=== PATIENT | female | born 1960 | race Caucasian/White ===

== ENCOUNTER → 2017-06-29 | Outpatient (CLI) | payer MEDICAID ==
[2016-09-08 13:13] VITALS: BP 113/70
--- NOTE | 2017-06-29 12:50 | RAD ---
Examination: Abdomen series with PA chest History: Lower abdominal pain Comparison reference: Abdomen CT, 05/22/2016 Findings: PA chest: Normal heart size with clear lungs and pleural spaces. Abdomen: Supine and erect views demonstrate no evidence for significant intestinal distention, obstru ction or localized ileus. There is no evidence for ascites, mass or urinary calcification. Visceral o utlines are normal. Impression: No significant chest or abdominal abnormality demonstrated. Reported By:
--- NOTE | 2017-06-29 12:53 | RAD ---
Examination: AP pelvis, one view History: Lower abdominal pain and bloating, history of hysterectomy Findings: AP view of the pelvis demonstrates normal bone density. There is no evidence for osseous le ronald, pole mass, or free fluid. Small calcifications in the pelvis are typical for vascular origin. T here is slight distention of the urinary bladder. Impression: No significant abnormality demonstrated. Reported By:
== END ==
LOC: RAD 12:01
PROVIDERS: ATTEND Nurse Practitioner Family
DX: R10.31 Right lower quadrant pain (principal); R10.32 Left lower quadrant pain
CPT/HCPCS: 72170; 74022

== ENCOUNTER 2017-08-01 11:08 | Inpatient (IN) | payer MEDICAID ==
[2017-08-01 13:24] LABS: APPEARANCE,URINE CLEAR (CLEAR); COLOR,URINE YELLOW (YELLOW); PROTEIN,URINE NEGATIVE (NEGATIVE)
[2017-08-01 13:25] LABS: BACTERIA,URINE TRACE /HPF (NEGATIVE); BILIRUBIN,URINE NEGATIVE (NEGATIVE); BLOOD/HEMOGLOBIN,URINE NEGATIVE (NEGATIVE); GLUCOSE, URINE NEGATIVE (NEGATIVE); KETONES,URINE NEGATIVE (NEGATIVE); LEUKOCYTE ESTERASE ,URINE NEGATIVE (NEGATIVE); NITRITES,URINE NEGATIVE (NEGATIVE); SQUAMOUS EPITHELIAL CELL,UR RARE /HPF (NEGATIVE); UROBILINOGEN,URINE NORMAL (NORMAL)
[2017-08-01] MEDS ORDERED: PERCOCET TAB 5/325 MG PO PRN (13:30)
--- NOTE | 2017-08-01 13:34 | DR.H&P ---
H&P - History & Physical for Day of: H&P Date: 08/01/17 - Chief Complaint Chief Complaint: RUQ PAIN, RIGHT RIB PAIN, NAUSEA - Allergies Allergies/Adverse Reactions: Allergies Allergy/AdvReac Type Severity Reaction Status Date / Time Penicillins Allergy Verified 08/01/17 11:42 - History of Present Illness History of Present Illness: patient is a 56-year-old white female who was a direct admit from Dr. Goncalves's office with complaints of right upper abdominal pain and right rib pain patient states she feels short of breath like she can't keep a deep breath without increased pain to her right side patient was previously same for similar complaints had a CT scan of the abdomen and pelvis without any acute findings patient was treated for UTI also on that visit with Cipro patient continues to have complaints of pain patient's pain she 's having nausea and vomiting associated with pain and it's unbearable. Patient states she still has her gallbladder. Plan to admit patient for further evaluation of abdominal pain pain and nausea control obtained gallbladder studies. - Past Medical History Past Medical History: Anxiety, Arthritis, Depression Additional Medical History: NEUROMOTOR DYSFUNCTION, UNCONTROLLED MUSCLE MOVEMENTS - Past Surgical History Surgical History: Appendectomy, - Family History Family Medical History: Diabetes Mellitus, Cancer, Coronary Artery Disease, Hypertension - Social History Does patient currently use any type of tobacco product: Yes Have you used tobacco products in the last 12 months: No Type of Tobacco Use: Cigarettes Alcohol Use: Occasionally Drug Use: None - Medications Home Medications: Carbidopa-Levodopa 25/250 mg [SINEMET (Plain) 25/250 mg tab *] 1 tab PO BID 12/13 [History Confirmed 08/01/17] Gabapentin [NEURONTIN CAP 300 mg *] 1 tab PO TID 08/01/17 [History Confirmed 12/13] Hydrocodone/Acetaminophen [Hydrocodon-Acetaminoph 7.5-325] 1 tab PO DAILY PRN [History Confirmed 08/01/17] Meloxicam [Meloxicam] 1 tab PO DAILY 08/01/17 [History Confirmed 08/01/17] - Review of Systems Constitutional: Weakness, Malaise Eyes: No Symptoms Reported ENT: No Symptoms Reported Cardiovascular: Chest Pain (right rib pain) Gastrointestinal: Nausea, Vomiting, Abdominal Pain Genitourinary: No Symptoms Reported Musculoskeletal: Back Pain, Leg Pain Skin: No Symptoms Reported Neurological: Other ( home along) - Physical Exam Vital Signs: Temperature 96.9 F Pulse Rate [Left Brachial] 98 Respiratory Rate 18 Blood Pressure [Right Arm] 113/70 Blood Pressure [Left Arm] 138/87 Blood Pressure 113/70 O2 Sat by Pulse Oximetry 100 Oriented: Person Eyes: Normal Ear: Normal Nose: Normal Throat: Normal Respiratory: RLL Diminished Cardiovascular: Normal : Normal Auscultation: Bowel Sounds: Normal (he was) Palpation: Normal Tenderness: RUQ, Epigastric Skin: Decreased Turgur Musculoskeletal: Left, Hip, Back:Lumbar Psychiatric: Anxiety Affect: Anxious Speech Pattern: Clear, Appropriate - Assessment/Plan (1) RUQ abdominal pain Status: Acute Plan: PLAN TO ADMIT FOR ASSESSMENT OF ABDOMINAL PAIN, PAIN AND NAUSEA CONTROL, IV PEPCID, IV CIPRO. UC, CMP, CBC. GB US, HIDA SCAN (2) Involuntary muscle contractions Status: Acute (3) Anxiety Status: Chronic (4) GERD (gastroesophageal reflux disease) Status: Chronic
[2017-08-01] MEDS: COLACE CAP 100 MG PO SCH ×2 (13:58→20:21)
[2017-08-01] MEDS ORDERED: COLACE CAP 100 MG PO SCH (14:00)
[2017-08-01] MEDS ORDERED: NS 1/2 1000 ML IV 1,000 ML IV ONE (14:07)
[2017-08-01] MEDS: CIPRO IV 400 MG PREMIX* 400 MG/200 ML IV.SOLN. IV SCH ×2 (14:15→20:21)
[2017-08-01] MEDS: PERCOCET TAB 5/325 MG PO PRN ×2 (14:16→20:22)
[2017-08-01] MEDS: NS 1/2 1000 ML IV 1,000 ML IV SCH (14:16)
[2017-08-01 14:18] LABS: BASOPHILS # (AUTO) 0.2 X10^3/uL (0.0-0.1); BASOPHILS % (AUTO) 1.6 % (0.2-1.0); EOSINOPHILS # (AUTO) 0.1 x10^3/uL (0.0-0.2); EOSINOPHILS % (AUTO) 0.9 % (0.9-2.9); HEMATOCRIT 40.7 % (36.0-47.0); HEMOGLOBIN 14.3 g/dL (12.0-16.0); LYMPHOCYTES # (AUTO) 1.6 X10^3/uL (1.3-2.9); LYMPHOCYTES % (AUTO) 16.6 % (21.0-51.0); MEAN CORPUSCULAR HGB CONC 35.1 g/dL (33.0-35.0); MEAN CORPUSCULAR VOLUME 85.3 fL (80.0-100.0); MEAN PLATELET VOLUME 7.1 fL (7.4-11.0); MONOCYTES # (AUTO) 0.3 x10^3/uL (0.3-0.8); MONOCYTES % (AUTO) 3.3 % (0.0-13.0); NEUTROPHILS # (AUTO) 7.4 x10^3/uL (2.2-4.8); NEUTROPHILS % (AUTO) 77.6 % (42.0-75.0); PLATELET COUNT 268 X10^3/uL (150.0-450.0); RED BLOOD COUNT 4.77 X10^6/uL (3.5-5.4); RED CELL DISTRIBUTION WIDTH 12.7 % (11.6-16.5); WHITE BLOOD COUNT 9.5 X10^3/uL (3.6-10.0)
[2017-08-01 14:32] LABS: ALANINE AMINOTRANSFERASE 114 Units/L (12-78); ALBUMIN 3.8 g/dL (3.4-5.0); ALKALINE PHOSPHATASE 185 Units/L (46-116); AMYLASE 31 Units/L (25-115); ASPARTATE AMINO TRANSFERASE 69 Units/L (15-37); BLOOD UREA NITROGEN 9 mg/dL (7-18); CALCIUM 9.4 mg/dL (8.5-10.1); CARBON DIOXIDE 32.1 mmol/L (21-32); CHLORIDE 103 mmol/L (98-107); CREATININE 0.75 mg/dL (0.55-1.02); LIPASE 93 Units/L (73-393); SODIUM 138 mmol/L (136-145); TOTAL PROTEIN 7.5 g/dL (6.4-8.2); eGFR BLACK RACES > 60 (>60); eGFR NON BLACK RACES > 60 (>60)
--- NOTE | 2017-08-01 14:35 | RAD ---
Examination: Portable AP chest History: SOB right pain Comparison reference 09/08/2016 Findings: Continued normal heart size with clear lungs and pleural spaces. Impression: No change; no acute disease. Reported By:
[2017-08-01] MEDS: PEPCID 20 MG IV PREMIX* 20 MG/50 ML BAG IV SCH (20:21)
--- NOTE | 2017-08-01 22:51 | US ---
Gallbladder ultrasound Indication: Right upper quadrant pain, nausea and vomiting Comparison: None Technique: Sonographic images of the right upper quadrant were obtained per protocol. Findings: There is no cholelithiasis, gallbladder sludge, gallbladder distention, wall thickening, or pericholecystic fluid. No biliary dilation is observed; the common duct measured 4 mm in diameter. T he visualized liver, right kidney, and pancreas were unremarkable. Impression: Normal gallbladder ultrasound. Reported By:
[2017-08-02] MEDS: ZOFRAN INJ 4 MG VIAL 16 MG, ATIVAN INJ 2 MG VIAL 1 MG, DECADRON INJ 10 MG in NS 50 ML I... IV PRN ×2 (01:00→11:18)
[2017-08-02] MEDS: PERCOCET TAB 5/325 MG PO PRN ×3 (02:38→14:14)
[2017-08-02] MEDS ORDERED: NS 1/2 1000 ML IV 1,000 ML IV ONE ×2 (04:14→21:35)
[2017-08-02] MEDS: NS 1/2 1000 ML IV 1,000 ML IV SCH ×2 (05:54→15:34)
[2017-08-02 06:02] LABS: BASOPHILS % (AUTO) 0.3 % (0.2-1.0); EOSINOPHILS % (AUTO) 0.4 % (0.9-2.9); HEMATOCRIT 39.9 % (36.0-47.0); HEMOGLOBIN 14.1 g/dL (12.0-16.0); LYMPHOCYTES % (AUTO) 10.3 % (21.0-51.0); MEAN CORPUSCULAR HGB CONC 35.3 g/dL (33.0-35.0); MEAN PLATELET VOLUME 7.6 fL (7.4-11.0); MONOCYTES # (AUTO) 0.1 x10^3/uL (0.3-0.8); MONOCYTES % (AUTO) 1.5 % (0.0-13.0); NEUTROPHILS # (AUTO) 8.4 x10^3/uL (2.2-4.8); NEUTROPHILS % (AUTO) 87.5 % (42.0-75.0); PLATELET COUNT 271 X10^3/uL (150.0-450.0); RED BLOOD COUNT 4.69 X10^6/uL (3.5-5.4); RED CELL DISTRIBUTION WIDTH 13.1 % (11.6-16.5); WHITE BLOOD COUNT 9.6 X10^3/uL (3.6-10.0)
[2017-08-02 06:10] LABS: ALANINE AMINOTRANSFERASE 99 Units/L (12-78); ALBUMIN 3.7 g/dL (3.4-5.0); ALKALINE PHOSPHATASE 180 Units/L (46-116); ASPARTATE AMINO TRANSFERASE 48 Units/L (15-37); BLOOD UREA NITROGEN 10 mg/dL (7-18); CALCIUM 9.1 mg/dL (8.5-10.1); CARBON DIOXIDE 25.1 mmol/L (21-32); CHLORIDE 104 mmol/L (98-107); COR NA(FOR HYPERGLY) 140 mmol/L (136-145); CREATININE 0.75 mg/dL (0.55-1.02); SODIUM 139 mmol/L (136-145); TOTAL PROTEIN 7.5 g/dL (6.4-8.2); eGFR BLACK RACES > 60 (>60); eGFR NON BLACK RACES > 60 (>60)
[2017-08-02 07:25] VITALS: BMI 23.8
[2017-08-02] MEDS: PEPCID 20 MG IV PREMIX* 20 MG/50 ML BAG IV SCH ×2 (08:33→21:21)
[2017-08-02] MEDS: CIPRO IV 400 MG PREMIX* 400 MG/200 ML IV.SOLN. IV SCH ×2 (08:33→21:21)
--- NOTE | 2017-08-02 13:21 | NM ---
HISTORY: RUQ pain, nausea. Technique: Multiple scintigraphic images of the abdomen were obtained the intravenous administration of 8.1 mCi of technetium labeled Choletec. Following distention of the gallbladder with radiotracer a bottle of Ensure was given. An estimated gallbladder ejection fraction was calculated based on this physiologic response. Findings: Homogeneous uptake of radiotracer is seen throughout the liver. The intrabiliary ductal system is ob served normally. The common hepatic and common bile duct grossly appear unremarkable with normal jeff iary-bowel transit. The gallbladder is observed to fill normally without evidence for acute cholecys titis. After the administration of ensure, however, an abnormally low gallbladder ejection fraction o f 2% (normal > 35%) is observed. Although many etiologies (certain medications, cholangitis, pancreat itis, sepsis, etc.) can account for a low gallbladder ejection fraction, in the outpatient setting, t he most common etiology is chronic cholecystitis. IMPRESSION: 1. Hepatobiliary imaging study demonstrates no evidence for acute cholecystitis or biliary leak/bilo ma formation. However, there is some delayed excretion of radiotracer contrast into the small bowel w hich can be seen with biliary dyskinesia/CBD dysfunction, possible CBD stricture formation, or CBD st one disease. RUQ ultrasound suggested. 2. Low gallbladder ejection fraction of 2%, as discussed above. Reported By:
--- NOTE | 2017-08-02 14:19 | DR.CONSULT ---
Consult - Consultation for Day of: Date: 08/02/17 - Chief Complaint Chief Complaint: RUQ pain. - Allergies Allergies/Adverse Reactions: Allergies Allergy/AdvReac Type Severity Reaction Status Date / Time Penicillins Allergy Verified 08/01/17 11:42 - History of Present Illness History of Present Illness: The patient is a 56 year old female who presented to her PCP with persistent RUQ pain , nausea, and vomiting. The patient states the pain is worse with respirations. No alleviating factors. She was recently treated for UTI for some of these symptoms without relief. The patient was admitted to the hospital and work-up started. An ultrasound failed to show any abnormalities. A subsequent HIDA demonstrated an ejection fraction of 2%. Currently, a MRCP is pending. - Past Medical History Past Medical History: Anxiety, Arthritis, Depression Additional Medical History: NEUROMOTOR DYSFUNCTION, UNCONTROLLED MUSCLE MOVEMENTS - Past Surgical History Surgical History: Appendectomy, - Family History Family Medical History: Diabetes Mellitus, Cancer, Coronary Artery Disease, Hypertension - Social History Does patient currently use any type of tobacco product: Yes Have you used tobacco products in the last 12 months: No Type of Tobacco Use: Cigarettes Alcohol Use: Occasionally Drug Use: None - Medications Home Medications: Carbidopa-Levodopa 25/250 mg [SINEMET (Plain) 25/250 mg tab *] 1 tab PO BID 12/13 [History Confirmed 08/01/17] Gabapentin [NEURONTIN CAP 300 mg *] 1 tab PO TID 08/01/17 [History Confirmed 12/13] Hydrocodone/Acetaminophen [Hydrocodon-Acetaminoph 7.5-325] 1 tab PO DAILY PRN [History Confirmed 08/01/17] Meloxicam [Meloxicam] 1 tab PO DAILY 08/01/17 [History Confirmed 08/01/17] - Review of Systems Constitutional: Weakness, Malaise Eyes: No Symptoms Reported ENT: No Symptoms Reported Respiratory: No Symptoms Reported Cardiovascular: No Symptoms Reported Gastrointestinal: Abdominal Pain Musculoskeletal: Back Pain, Leg Pain Skin: No Symptoms Reported Neurological: No Symptoms Reported - Physical Exam Vital Signs: Temperature 97.6 F Pulse Rate [Right Brachial] 89 Pulse Rate [Left Brachial] 60 Respiratory Rate 18 Blood Pressure [Right Arm] 117/63 Blood Pressure [Left Arm] 129/78 Blood Pressure 113/70 O2 Sat by Pulse Oximetry 91 Oriented: Normal Eyes: Normal Ear: Normal Nose: Normal Respiratory: Clear Throughout Cardiovascular: Normal Auscultation: Bowel Sounds: Normal Palpation: Normal Tenderness: RUQ Skin: Normal Musculoskeletal: Normal Affect: Anxious Speech Pattern: Clear (Stuttering noted.) - Plan Plan: 56 year old female with ruq pain, nausea, and vomiting: Likely represents chronic cholecystitis. Agree with MRCP to rule out other etiologies at Sphincter of Oddi. If MRCP normal, will likely proceed with lap ina in am. Risk / benefits discussed with patient. All questions answered.
[2017-08-02] MEDS: MORPHINE SULFATE INJ 2 MG INJ IVP PRN ×2 (14:32→21:24)
[2017-08-02] MEDS: SINEMET (PLAIN) 25/250 MG PO SCH ×2 (17:57→21:21)
[2017-08-02] MEDS ORDERED: FLEXERIL TAB 10 MG PO PRN (18:00)
[2017-08-02] MEDS ORDERED: MOTRIN TAB 600 MG PO PRN (18:00)
--- NOTE | 2017-08-02 18:11 | MRI ---
MRI abdomen without contrast MRCP abdomen without contrast Indication: Constipation and abdominal pain. Abnormal HIDA scan. Comparison: HIDA scan from earlier today reviewed. Gallbladder ultrasound from the previous day tue. CT from 05/22/2016 reviewed. Technique: Multiplanar multi sequence imaging through the abdomen performed without contrast. 3D MRCP imaging provided. Findings: Bone marrow signal is normal. Wedge compression deformity T11 appears chronic. Loops bowel appear grossly normal. Vascular flow voids appear normal. No liver lesion identified. The stomach meredith ears normal. The kidneys appear normal. The spleen is normal. No adrenal lesions identified. Urinary bladder and rectum are normal. Out of phase imaging shows no fatty infiltration of the liver. The gal lbladder is not thick-walled. No filling defects seen in the gallbladder. The common bile duct is not dilated. Pancreas duct appears normal. The pancreas is normal. The coronal image 3 of series 901 petey ws abnormal biliary tree, pancreas duct and gallbladder. Impression: 1. Non dilated common bowel duct without specific evidence of obstruction, stricture or stone. 2. Normal appearing gallbladder. 3. Remaining solid organs appear normal. Reported By:
[2017-08-02] MEDS ORDERED: POTASSIUM CHL 40 MEQ/NS 0.45% 500 ML IV PRN (18:22)
[2017-08-02] MEDS ORDERED: K-RIDER 10 MEQ/NS 100 ML 10 MEQ/100 ML BAG IV PRN (18:22)
[2017-08-02] MEDS ORDERED: POTASSIUM CHL 60 MEQ/NS 0.45% 500 ML IV PRN (18:22)
[2017-08-02] MEDS ORDERED: POTASSIUM CHLORIDE LIQ 20 MEQ UDC PO PRN (18:22)
[2017-08-02] MEDS: K-LYTE EFFERVESCENT PO PRN (18:35)
[2017-08-02] MEDS: NEURONTIN CAP 300 MG PO SCH (21:21)
[2017-08-02] MEDS: COLACE CAP 100 MG PO SCH (21:22)
[2017-08-03] MEDS: MORPHINE SULFATE INJ 2 MG INJ IVP PRN ×4 (02:10→23:26)
[2017-08-03 05:33] LABS: ALANINE AMINOTRANSFERASE 52 Units/L (12-78); ALBUMIN 3.5 g/dL (3.4-5.0); ALKALINE PHOSPHATASE 159 Units/L (46-116); ASPARTATE AMINO TRANSFERASE 25 Units/L (15-37); BLOOD UREA NITROGEN 12 mg/dL (7-18); CARBON DIOXIDE 25.5 mmol/L (21-32); CHLORIDE 104 mmol/L (98-107); COR NA(FOR HYPERGLY) 141 mmol/L (136-145); CREATININE 0.81 mg/dL (0.55-1.02); SODIUM 140 mmol/L (136-145); TOTAL PROTEIN 7.2 g/dL (6.4-8.2); eGFR BLACK RACES > 60 (>60); eGFR NON BLACK RACES > 60 (>60)
[2017-08-03 05:40] LABS: BASOPHILS % (AUTO) 0.1 % (0.2-1.0); HEMATOCRIT 38.5 % (36.0-47.0); HEMOGLOBIN 13.3 g/dL (12.0-16.0); LYMPHOCYTES # (AUTO) 1.2 X10^3/uL (1.3-2.9); LYMPHOCYTES % (AUTO) 8.7 % (21.0-51.0); MEAN CORPUSCULAR HEMOGLOBIN 29.9 pg (27.0-34.0); MEAN CORPUSCULAR HGB CONC 34.6 g/dL (33.0-35.0); MEAN CORPUSCULAR VOLUME 86.3 fL (80.0-100.0); MEAN PLATELET VOLUME 7.7 fL (7.4-11.0); MONOCYTES # (AUTO) 0.5 x10^3/uL (0.3-0.8); MONOCYTES % (AUTO) 3.8 % (0.0-13.0); NEUTROPHILS # (AUTO) 11.7 x10^3/uL (2.2-4.8); NEUTROPHILS % (AUTO) 87.4 % (42.0-75.0); PLATELET COUNT 292 X10^3/uL (150.0-450.0); RED BLOOD COUNT 4.46 X10^6/uL (3.5-5.4); WHITE BLOOD COUNT 13.4 X10^3/uL (3.6-10.0)
[2017-08-03] MEDS: SINEMET (PLAIN) 25/250 MG PO SCH ×3 (05:50→21:17)
[2017-08-03] MEDS: NEURONTIN CAP 300 MG PO SCH ×3 (05:50→21:16)
[2017-08-03] MEDS: PEPCID 20 MG IV PREMIX* 20 MG/50 ML BAG IV SCH ×2 (08:15→20:22)
[2017-08-03] MEDS: CIPRO IV 400 MG PREMIX* 400 MG/200 ML IV.SOLN. IV SCH ×2 (08:15→20:22)
[2017-08-03] MEDS: PriLOSEC PO SCH (08:24)
[2017-08-03] MEDS: MOBIC TAB 15 MG PO SCH (08:24)
[2017-08-03] MEDS ORDERED: ANCEF VIAL 1 GM ONE (09:55)
[2017-08-03] MEDS: LR 1000 ML IV 1,000 ML IV ONE ×2 (10:20→11:40)
[2017-08-03] MEDS ORDERED: FENTANYL INJ 100 mcg ONE (10:36)
[2017-08-03] MEDS ORDERED: DILAUDID INJ ONE ×2 (10:37→13:15)
[2017-08-03] MEDS ORDERED: NS 100 ML IV 100 ML IV ONE (10:38)
[2017-08-03] MEDS: CLEOCIN VIAL 600 MG ONE ×2 (10:50→11:30)
[2017-08-03] MEDS ORDERED: MARCAINE 0.25% INJ ONE (11:45)
[2017-08-03] MEDS ORDERED: XYLOCAINE 1% and EPINEPHRINE 1:100,000 ONE (11:45)
[2017-08-03] MEDS ORDERED: REGLAN INJ 10 MG VIAL IVP PRN (12:55)
[2017-08-03] MEDS ORDERED: BENADRYL INJ 50 MG VIAL IVP PRN (12:55)
[2017-08-03] MEDS ORDERED: DILAUDID INJ IVP PRN (12:55)
[2017-08-03] MEDS ORDERED: ZOFRAN INJ 4 MG VIAL IVP PRN (12:55)
[2017-08-03] MEDS ORDERED: PHENERGAN INJ 25 MG IVP PRN (12:55)
--- NOTE | 2017-08-03 13:03 | OR.GENERIC ---
Post-Op Note Generic - Post-Op Note Operative Report: Operative Report Date of Operation: August 03, 2017 Pre-Operative Diagnosis: Biliary dyskinesia. Post-Operative Diagnosis: Biliary dyskinesia. Procedure: Laparoscopic cholecystectomy. Surgeon: George Brewer MD. Credit Authorizer: Moni Pearson CRNA. Specimen: Gallbladder. Estimated blood loss: Minimal. Complications: None. Summary: The patient is a 56 year old female who presented with biliary dyskinesia. The patient was offered cholecystectomy. The risk and benefits of the procedure including difficulty with anesthesia, bleeding, infection, conversion to open procedure, bile leak, hernia formation, DVT, as well as PE were discussed with the patient. The patient understood these risks and requested the procedure. On August 03, 2017, the patient was brought to the operative theatre. A time out was performed verifying the patient and procedure. After satisfactory induction of general endotracheal anesthesia, the abdomen was prepped with Chloraprep and draped in the usual sterile fashion. The skin and subcutaneous tissue at the umbilicus was anesthetized using local anesthetic. The skin was incised sharply. A 12 mm trocar was placed though the incision and into the peritoneal cavity using the Lashanda technique. Carbon dioxide was infiltrated through this trocar to obtain a pneumoperitoneum of 15 mm Hg. A camera was placed through this trocar and swept in all directions. No injury was seen from entering the peritoneal cavity. A site was selected in the subxiphoid location for our 2nd trocar. The skin and fascia was anesthetized using local anesthetic. The skin was incised sharply. A 5 mm trocar was placed into the peritoneal cavity under direct visualization. In a similar manner, an additional 5 mm trocar was placed in the mid-clavicular line approximately 2 fingerbreadths inferior to the left costal margin. The patient was placed in reverse Trendelenburg and rotated to the patients left. The gallbladder was grasped at the fundus and elevated cephalad and slightly lateral. The peritoneum on the medial and lateral aspects of the infundibulum of the gallbladder was scored using hook electrocautery. Using blunt dissection, the cystic artery and duct were isolated. The cystic artery was noted to branch just proximal to the gallbladder. The critical view of safety was obtained. These structures were divided between endoclips. The gallbladder was dissected free using hook electrocautery. The gallbladder was placed in an endobag and removed through the umbilical trocar site without difficulty. The trocar and camera were placed back inside the abdomen. Our clips were noted in good position. Bleeding of the gallbladder fossa was controlled using electrocautery. At this point, the 5 mm trocars were removed under direct visualization. No bleeding was seen. The umbilical trocar was then removed and pneumoperitoneum released. The fascia at the umbilicus was closed using a 0 -Vicryl placed in a [id number] configuration. The skin edges at all incisions were re-approximated using inverted, interrupted 4-0 Monocryl sutures. Mastisol and Steri-strips were placed. Sterile dressings were placed. The patient was awakened and taken to the recovery room in stable condition. There were no complications. All counts were correct.
[2017-08-03] MEDS ORDERED: NS 1/2 1000 ML IV 1,000 ML IV ONE (17:21)
[2017-08-03] MEDS: NS 1/2 1000 ML IV 1,000 ML IV SCH (18:21)
[2017-08-03] MEDS: PERCOCET TAB 5/325 MG PO PRN (20:23)
[2017-08-03] MEDS: COLACE CAP 100 MG PO SCH (20:24)
--- NOTE | 2017-08-03 22:09 | CT ---
CT head without contrast Indication: Slurred speech Comparison: None Technique: CT images of the head were obtained without contrast. Automatic exposure control was utili Tjobs S.A.d. Findings: There is no acute bleed, mass, mass effect, or abnormal extra-axial collection. The ventric les are not dilated. No significant skeletal abnormality. The visualized paranasal sinuses and mastoi d air cells are clear. Impression: No acute intracranial abnormality. Reported By:
[2017-08-04 05:09] LABS: BASOPHILS % (AUTO) 0.2 % (0.2-1.0); EOSINOPHILS # (AUTO) 0.1 x10^3/uL (0.0-0.2); EOSINOPHILS % (AUTO) 0.6 % (0.9-2.9); HEMATOCRIT 36.5 % (36.0-47.0); HEMOGLOBIN 12.6 g/dL (12.0-16.0); LYMPHOCYTES # (AUTO) 2.6 X10^3/uL (1.3-2.9); LYMPHOCYTES % (AUTO) 27.9 % (21.0-51.0); MEAN CORPUSCULAR HGB CONC 34.6 g/dL (33.0-35.0); MEAN CORPUSCULAR VOLUME 86.8 fL (80.0-100.0); MEAN PLATELET VOLUME 7.5 fL (7.4-11.0); MONOCYTES # (AUTO) 0.6 x10^3/uL (0.3-0.8); MONOCYTES % (AUTO) 6.2 % (0.0-13.0); NEUTROPHILS % (AUTO) 65.1 % (42.0-75.0); PLATELET COUNT 265 X10^3/uL (150.0-450.0); RED CELL DISTRIBUTION WIDTH 12.9 % (11.6-16.5); WHITE BLOOD COUNT 9.3 X10^3/uL (3.6-10.0)
[2017-08-04] MEDS: SINEMET (PLAIN) 25/250 MG PO SCH (05:15)
[2017-08-04] MEDS: PERCOCET TAB 5/325 MG PO PRN (05:15)
[2017-08-04] MEDS: NEURONTIN CAP 300 MG PO SCH (05:15)
[2017-08-04 05:37] LABS: ALANINE AMINOTRANSFERASE 42 Units/L (12-78); ALBUMIN 3.4 g/dL (3.4-5.0); ALKALINE PHOSPHATASE 142 Units/L (46-116); ASPARTATE AMINO TRANSFERASE 28 Units/L (15-37); BLOOD UREA NITROGEN 12 mg/dL (7-18); CALCIUM 8.4 mg/dL (8.5-10.1); CARBON DIOXIDE 30.2 mmol/L (21-32); CHLORIDE 104 mmol/L (98-107); CREATININE 0.81 mg/dL (0.55-1.02); SODIUM 141 mmol/L (136-145); TOTAL PROTEIN 6.7 g/dL (6.4-8.2); eGFR BLACK RACES > 60 (>60); eGFR NON BLACK RACES > 60 (>60)
[2017-08-04] MEDS: NS 1/2 1000 ML IV 1,000 ML IV SCH ×2 (05:58→10:50)
[2017-08-04] MEDS: K-LYTE EFFERVESCENT PO PRN (06:14)
[2017-08-04] MEDS ORDERED: NS 1/2 1000 ML IV 1,000 ML IV ONE (06:22)
[2017-08-04] MEDS: MOBIC TAB 15 MG PO SCH (09:10)
[2017-08-04] MEDS: PriLOSEC PO SCH (09:10)
[2017-08-04] MEDS: CIPRO IV 400 MG PREMIX* 400 MG/200 ML IV.SOLN. IV SCH ×2 (09:11→10:48)
[2017-08-04] MEDS: PEPCID 20 MG IV PREMIX* 20 MG/50 ML BAG IV SCH (09:12)
[2017-08-04] MEDS ORDERED: DIPRIVAN VIAL ONE (09:42)
[2017-08-04] MEDS ORDERED: ULTANE GAS IN ONE (09:53)
[2017-08-04] MEDS ORDERED: TORADOL 30 MG VIAL ONE (09:53)
[2017-08-04] MEDS ORDERED: QUELICIN (OR ANECTINE) ONE (09:53)
[2017-08-04] MEDS ORDERED: ZOFRAN INJ 4 MG VIAL ONE (09:53)
[2017-08-04] MEDS ORDERED: NORCURON INJ 10 MG VIAL ONE (09:53)
[2017-08-04] MEDS ORDERED: ROBINUL ONE (09:53)
[2017-08-04] MEDS ORDERED: VERSED ONE (09:53)
[2017-08-04] MEDS ORDERED: NEOSTIGMINE INJ ONE (09:53)
[2017-08-04 10:35] VITALS: BP 101/59
== END 2017-08-04 11:25 | disposition home or self-care (01) | DRG 392 ==
LOC: UNDOADMOB 11:08 → OBS 11:08 → MED/SURG 16:26 → OBSVTOIN 08-02 11:30
PROVIDERS: ADMIT Internal Medicine; ATTEND Internal Medicine
PROC: 0FT44ZZ Resection of Gallbladder, Percutaneous Endoscopic Approach (ICD-10-PCS; principal; 2017-08-03 11:45)
DX: R10.11 Right upper quadrant pain (principal); K82.8 Other specified diseases of gallbladder; R07.81 Pleurodynia; R06.02 Shortness of breath; M13.89 Other specified arthritis, multiple sites; F41.8 Other specified anxiety disorders; F32.89 Other specified depressive episodes; K21.9 Gastro-esophageal reflux disease without esophagitis; M62.48 Contracture of muscle, other site; R11.2 Nausea with vomiting, unspecified; R74.8 Abnormal levels of other serum enzymes
CPT/HCPCS: 36415; 70450; 71010; 74181; 76705; 78227; 80053; 81001; 82150; 83690; 83735; 84132; 85025; 87086; 93005; 93010; 94640; 94760; A4216; A4222; A9537; S0020; S0028; G0378; J0330; J0690; J0744; J1170; J1885; J2001; J2250; J2270; J2405; J2710; J3010; J3490; J7120; S0077